=== PATIENT | female | born 1985 | race Two or more races ===

== ENCOUNTER 2025-01-25 07:36 | Emergency (ER) | payer MEDICAID, SELFPAY ==
[2025-01-25 08:12] VITALS: BP 127/88; PULSE 92; RESP 18; TEMP 36.9; O2SAT 100; BMI 25.9
--- NOTE | 2025-01-25 08:32 | PD.EDADULT ---
ED General RME/HPI General Chief complaint: Back Pain/Injury Stated complaint: Lower back pain X 1 week Time Seen by Provider: 01/25/25 07:57 Arrival date/time: 01/25/25 07:36 Limitations: no limitations RME / HPI RME / HPI narrative: DR. NELSON MAIN ED EVALUATION: 39 year old female presents to the Emergency Department with complaint of lower back pain onset 1 week. She states she was sitting and got up and then her pain started and has not gone away. She states she has been taking Tylenol at home for the pain, last taken was at 6 AM today. No radiation reported. No fall, injury, or other symptoms reported. Denies . PMHx: Denies any PMHx, surgeries, daily medications, or known allergies. Social Hx: No tobacco, alcohol, or substance use. Related Data Previous Rx's ?Medication ?Instructions ?Recorded lidocaine 5 % topical patch 1 patch topical QDAY #30 ea 01/25/25 Allergies Allergy/AdvReac Type Severity Reaction Status Date / Time No Known Allergies Allergy Unverified 01/25/25 07:40 Review of Systems Review of Systems Systems Reviewed: All systems reviewed, normal except as documented Past Medical History Past Medical History OTHER HISTORY: Positive Hospitalization () Social History SMOKING STATUS: Never smoker SUBSTANCE USE: does not use ALCOHOL: Never ED Exam General Limitations: Present no limitations General appearance: Present alert and in no apparent distress Head Head exam: Present atraumatic, normocephalic and normal inspection Eye Eye exam: Present normal appearance, PERRL and EOMI ENT ENT exam: Present normal exam, normal oropharynx and mucous membranes moist Neck Neck exam: Present normal inspection, full ROM and trachea midline Chest Chest inspection: Present normal inspection and symmetric chest wall rise Respiratory Respiratory exam: Present normal lung sounds bilaterally Cardiovascular Cardiovascular exam: Present regular rate, normal rhythm and normal heart sounds Abdominal Exam Abdominal exam: Present soft and normal bowel sounds Extremities Exam Extremities exam: Present normal inspection and full ROM Back Exam Back exam: Present tenderness (midline tenderness to palpation of the S1) Neurological Exam Neurological exam: Present alert, oriented X3, CN II-XII intact and normal gait Psychiatric Psychiatric exam: Present normal affect and normal mood Skin Skin exam: Present warm, dry, intact and normal color Course Quality Measures none Vital Signs Vital signs: Vital Signs Temperature 98.5 F 01/25/25 08:12 Pulse Rate 92 06/14/25 08:12 Respiratory Rate 18 01/25/25 08:12 Blood Pressure 127/88 H 01/25/25 08:12 Pulse Oximetry (%) 100 01/25/25 08:12 Oxygen Delivery Method Room Air 01/25/25 08:12 Discharge Plan Plan Patient Disposition: HOME (Self Care) Patient condition on transfer: Stable Prescriptions/Referrals Prescriptions/Med Rec: New lidocaine 5 % adhesive patch,medicated 1 patch topical QDAY Qty: 30 0RF Rx Instructions: leave on most painful area for up to 12 hrs Problem List Clinical Impression: Coccydynia Patient/Caregiver Discharge Instructions Discharge Activity: as per physical therapy Education Materials: Understanding Coccydynia Print Language: [place] Stand Alone Forms: Tawnya Award Info., Patient Portal Info Letter MDM Clinical Information Provided by patient Medical Records Reviewed [facility] Meds/Rx Considered, not Ordered None Labs/Rad/Tests considered, not Ordered None Chronic Illness/Social Conditions Add or document further as needed: Denies any PMHx, surgeries, daily medications, or known allergies. EKG EKG not done Lab Interpretation Labs: none Imaging Imaging interpretation: none Medication Administration(s) none Diagnosis Differential diagnosis: Back strain, sciatica, Coccydynia Most likely dx, and/or detailed dx discussion: Coccydynia Dispositon Disposition: Discharge Home
== END 2025-01-25 08:39 | disposition home or self-care (01) ==
LOC: SERX 09:39
PROVIDERS: Emergency Provider Emergency Medicine; PCP Family Medicine
DX: M53.3 Sacrococcygeal disorders, not elsewhere classified (principal)
CPT/HCPCS: 99281